=== PATIENT | female | born 1935 | race Caucasian/White ===

== ENCOUNTER 2017-07-31 21:57 | Observation (INO) | payer MEDICARE, OTHER ==
[2017-07-31 22:38] LABS: #Basophils 0.1 thou/uL (0.0-0.2); #Eosinphils 0.2 thou/uL (0.0-0.7); #Monocytes 0.6 thou/uL (0.11-0.59); #Neutrophils 5.1 thou/uL (1.40-6.50); %Basophils 0.7 % (0.0-1.0); %Eosinophils 2.5 % (0.0-10.0); %Lymphocytes 25.5 % (21.0-51.0); %Monocytes 7.4 % (0.0-10.0); Hematocrit 35.4 % (36.0-47.0); Mean Platelet Volume 7.3 fL (7.4-10.4); White Blood Cell (WBC) Count 7.9 thou/uL (4.8-10.8)
--- NOTE | 2017-07-31 22:44 | RAD ---
PORTABLE AP CHEST: Date: 07-31-17 History: altered mental status. Comparison: 07-31-17 from [facility] FINDINGS: There is increased density seen at the left lung base which could be related to left pleural effusio n and atelectasis. Superimposed pneumonia cannot be excluded. Right lung remains clear. Cardiac silh ouette and pulmonary vasculature are within normal limits. Vascular calcifications again seen in the thoracic aorta. There is bilateral glenohumeral osteoarthropathy again present. IMPRESSION: Increased density lateral left lung base which may be related to small left pleural effusion and ate lectasis. However, infiltrate cannot be entirely excluded. Follow up evaluation is recommended. POS: DANO
[2017-07-31 22:59] LABS: Anion Gap 16 mmol/L (10-20); BUN (Urea Nitrogen) 13 mg/dL (9.8-20.1); Calc. Creatinine Clearance 0 mL/min (70-130); Calcium 9.6 mg/dL (7.8-10.44); Carbon Dioxide 24 mmol/L (23-31); Chloride 101 mmol/L (98-107); Estimated GFR-MDRD 42
[2017-08-01] MEDS ORDERED: Ondansetron ODT 4 MG TAB SL PRN (01:39)
[2017-08-01] MEDS ORDERED: Ondansetron HCl/PF 4 MG/2 ML Vial IVP PRN ×2 (01:39→08:47)
[2017-08-01] MEDS ORDERED: Acetaminophen 325 MG TAB PO PRN (01:39)
[2017-08-01 02:31] VITALS: BMI 22.9
[2017-08-01] MEDS ORDERED: Phenylephrine 10 MG/NS 250 ML 250 ML ONE (07:07)
[2017-08-01] MEDS ORDERED: Albumin 5% 500 ML ONE (07:07)
[2017-08-01] MEDS: Aspirin 325 mg Enteric Coated Tablet PO SCH (09:19)
[2017-08-01] MEDS: Enoxaparin Sodium 40 MG/0.4 ML SYRINGE SC SCH (09:20)
[2017-08-01] MEDS: cefTRIAXone\\ROCEPHIN 1 GM in Sodium Chloride 0.9% 100 ML IVPB SCH (09:27)
[2017-08-01 11:34] LABS: Troponin I Less than 0.010 ng/mL (< 0.028)
--- NOTE | 2017-08-01 11:37 | HP ---
PRIMARY CARE PHYSICIAN: Vin Bradshaw M.D. CHIEF COMPLAINT: Altered mental status. HISTORY OF PRESENT ILLNESS: Ms. Cullen is a pleasant 82-year-old lady who was seen at [facility] on 08/01/2017 following transfer from [place]. The patient is able to provide some history. Further history was obtained from the medical record a s well as discussion with the emergency room physician. Over the last week, Ms. Cullen has had confusion and altered mental status. She went to the emerge ncy room at [place], because of the confusion. The emergency room physician discussed her case wi th her primary care physician. She was transferred to this facility for further management. She denies any weakness. She denies any dysuria or increased frequency of urination. She denies an y nausea, vomiting, diarrhea or abdominal pain. She denies any chest pain or shortness of breath. REVIEW OF SYSTEMS: The following complete review of systems was negative, unless otherwise mentione d in the HPI or below: Constitutional: Weight loss or gain, sense of well-being, ability to conduct usual activities, exer cise tolerance. Skin/Breast: Rash, itching, changes in hair growth or loss, nail changes, breast lumps, tenderness, swelling, nipple discharge. Eyes: Vision, double vision, tearing, blind spots, pain. ENT/Mouth: Headaches (location, time of onset, duration, precipitating factors), vertigo, lighthead edness, injury. Vision, double vision, tearing, blind spots, pain, nose bleeding, colds, obstruction , discharge, dental difficulties, gingival bleeding, dentures, neck stiffness, pain, tenderness, mas ses in thyroid or other areas. Cardiovascular: Precordial pain, substernal distress, palpitations, syncope, dyspnea on exertion, o rthopnea, nocturnal paroxysmal dyspnea, edema, cyanosis, hypertension, heart murmurs, varicosities, phlebitis, claudication. Respiratory: Pain, shortness of breath, wheezing, stridor, cough, hemoptysis, fever or night sweats . Gastrointestinal: Poor appetite, dysphagia, indigestion, abdominal pain, heartburn, eructation, ash sea, vomiting, hematemesis, jaundice, constipation, or diarrhea, abnormal stools (fabienne-colored, cynthia y, bloody, greasy, foul smelling), flatulence, hemorrhoids, recent changes in bowel habits. Genitourinary: Urgency, frequency, dysuria, nocturia, hematuria, polyuria, oliguria, unusual (or ch reji in) color of urine, stones, hesitancy, change in size of stream, dribbling, acute retention or incontinence, libido, potency. Musculoskeletal: Pain, swelling, redness or heat of muscles or joints, limitation, of motion, muscu lar weakness, atrophy, cramps. Neurologic/Psychiatric: Convulsions, paralyses, tremor, incoordination, paresthesias, difficulties with memory of speech, sensory or motor disturbances, or muscular coordination (ataxia, tremor), emo tional problems, anxiety, depression, previous psychiatric care, unusual perceptions, hallucinations . Allergy/Immunologic: Skin rash, anemia, bleeding tendency, polydipsia, polyuria, intolerance to hea t or cold. PAST MEDICAL HISTORY: Significant for hypertension and dyslipidemia. PAST SURGICAL HISTORY: Significant for knee surgery, back surgery, partial hysterectomy, and append ectomy. PSYCHIATRIC HISTORY: Significant for depression. SOCIAL HISTORY: The patient denies tobacco use, alcohol use or recreational drug use. FAMILY HISTORY: Significant for TIA in her mother. CODE STATUS: Could not be discussed, because of patient's altered mental status, will need to be cl arified. ALLERGIES: HYCOMINE and PENICILLIN. CURRENT MEDICATIONS: Include rivaroxaban 10 mg daily. Further medications need to be clarified. PHYSICAL EXAMINATION: GENERAL: Ms. Cullen is awake and alert, not in acute distress. VITAL SIGNS: Blood pressure is 131/60, pulse is 77. She is breathing at rate of 20 and saturating 96% on 2 liters of oxygen. She is afebrile. EYES: No scleral icterus. No conjunctival pallor. ENT: Moist mucosal membranes, no oropharyngeal erythema or exudates. NECK: Supple, nontender, normal range of movement. Trachea is midline. RESPIRATORY: Accessory muscles of breathing are not active. Chest wall movements are symmetric tio aterally. LUNGS: Clear to auscultation without wheeze, rhonchi or crepitations. CARDIOVASCULAR: S1 and S2 are heard, regular. Peripheral pulses palpable. No carotid bruit, no pe ricardial rub. ABDOMEN: Soft, nontender, bowel sounds heard, no hepatomegaly, splenomegaly. NEUROLOGIC: Cranial nerves II through XII intact. No focal motor or sensory deficits. Power is 5/ 5 in all 4 extremities. Cerebellar exam unremarkable. Deep tendon reflexes are 2+. Plantar reflex es downgoing bilaterally. MUSCULOSKELETAL: Power is 5/5 in all 4 extremities. Normal range of movement at all major extremit y joints. PSYCHIATRIC: Normal mood, normal affect, patient is oriented to person, now she is in a hospital, b ut does not know which one, is not oriented to date, month or year. SKIN: No rashes or subcutaneous nodules. LYMPHATIC: No cervical lymphadenopathy. LABORATORY DATA: Ms. Cullen's labs and investigations were reviewed. Urinalysis is positive for t race leukocyte esterase, negative for nitrites. I reviewed her electrocardiogram, which shows chin l sinus rhythm, T-wave inversion/flattening in anterolateral leads. I do not have an old electrocar diogram for comparison. I also reviewed her chest x-ray, which does not show any pulmonary infiltra jose. She also had a CT scan of the brain without contrast, which did not reveal any infarct or blee d. Laboratory investigation show normal electrolytes, creatinine mildly elevated at 1.3, estimated GFR 38, unremarkable liver profile, normal troponin I, white count 7900, hemoglobin 12.5, and platel et count 186,000. Calcium level is normal as well. ASSESSMENT AND PLAN: Ms. Cullen is a pleasant 82-year-old lady who was seen at [facility]. Her problem list includes: 1. Encephalopathy: Ms. Cullen is being admitted to the hospital for altered mental status of unkn own etiology. She will have further workup, including MRI of the brain to rule out stroke, 2D echoc ardiogram and carotid Dopplers. Neurology service will be consulted. She will be started on aspiri n and statin for suspected transient ischemic attack/cerebrovascular accident. Other etiologies of encephalopathy will be investigated, including rechecking her cardiac enzymes to rule out acute missael nary syndrome and starting her on antibiotics for suspected urinary tract infection. 2. Urinary tract infection: Suspected. The patient has already received a dose of ceftriaxone, we will continue. 3. EKG changes: Patient denies any chest pain. I will recheck cardiac enzymes and EKG. 4. Hypertension: Monitor vital signs, titrate antihypertensives as needed. 5. Dyslipidemia: Continue statins. It is unclear why Ms. Cullen is on rivaroxaban. We will need to obtain more information. LEVEL OF RISK: High. LEVEL OF COMPLEXITY: High. Many thanks for allowing me to participate in your patient's care. Please feel free to contact me w ith any questions or concerns.
--- NOTE | 2017-08-01 13:43 | MRI ---
MRI OF THE BRAIN WITHOUT CONTRAST: Comparison: None. History: Confusion and stroke. Technique: Multiplanar, multisequence MRI images were obtained of the brain without contrast. FINDINGS: There is scattered foci of high T2/FLAIR signal in the subcortical and periventricular white matter, likely secondary to small vessel ischemic disease. There is a small area of T2 shine through in the left frontal white matter. No obvious restricted diffusion is seen to suggest an acute infarction. There is cerebral atrophy. This causes ex vacuo dilatation of the lateral ventricles. There is no ev idence of hydrocephalus, intracranial hemorrhage, or extraaxial fluid collection. The expected flow voids are present. The corpus callosum, pituitary, and craniocervical junction are unremarkable. There is opacification of right mastoid air cells. The left mastoid air cells and paranasal sinuses are well aerated. IMPRESSION: Small vessel ischemic disease without acute intracranial abnormality. POS: DANOH
--- NOTE | 2017-08-01 16:32 | ULT ---
CAROTID DUPLEX SONOGRAM: History: TIA. Vascular disease. FINDINGS: Right: Moderate degree of plaque is present. Color and spectral doppler evaluation, peak systolic velocity of 67 cm/sec, and IC to CC ratio of 0.9 suggests no hemodynamically significant stenosis within the extracranial right ICA. Antegrade flow is present within the vertebral artery. Left: Minimal plaque is present. Color and spectral doppler evaluation, peak systolic velocity of 78 cm/se c, and IC to CC ratio of 1.0 suggests no hemodynamically significant stenosis within the extracrania l left ICA. Antegrade flow is present within the vertebral artery. IMPRESSION: Atherosclerosis. There is no sonographic evidence of a significant extracranial ICA stenosis. POS: [facility]
[2017-08-01 17:30] LABS: Troponin I Less than 0.010 ng/mL (< 0.028)
[2017-08-01] MEDS ORDERED: Atorvastatin Calcium 10 MG TAB PO SCH (21:00)
--- NOTE | 2017-08-01 23:54 | CON ---
DATE OF CONSULTATION: 08/01/2017 CONSULTING PHYSICIAN: Hospitalist Service. IMPRESSION: Early dementia. PLAN: 1. Aricept 5 mg per day. 2. Office followup. Ms. Cullen is an 82-year-old white female, lives in the [place] area with her nephew. She appare ntly seemed more confused and was brought in for evaluation. She apparently has been living with so me assistance for several years. She has never been or has any children. She had an MRI of the brain after admission, which only showed some small vessel ischemic changes. Her carotid ultra sound did not show any stenosis. Her echocardiogram showed an ejection fraction of 55%. Her vital signs have been stable and afebrile since admission. Her lab work including CBC and metabolic panel were both unremarkable. The patient is without any particular complaints. ALLERGIES: PENICILLIN, HYCOMINE. SOCIAL HISTORY: No tobacco or alcohol use. FAMILY HISTORY: Noncontributory. REVIEW OF SYSTEMS: No complaints of chest pain or shortness of breath. PHYSICAL EXAMINATION: GENERAL: She is a well-nourished elderly lady lying in bed, in no distress. HEENT: All within normal limits. EXTREMITIES: No cyanosis or edema noted. NEUROLOGIC: She was alert and cooperative. Her speech is fluent and clear. She was oriented to rson, but did not know the date or location. Once reoriented, she had trouble with short term recal l of the information. Cranial nerves II through XII are intact. Motor exam showed no focal weaknes s. Sensation was intact. No tremors or other abnormal movements were present. Gait was not tested . LABORATORY STUDIES: EKG showed normal sinus rhythm. SUMMARY: This is an elderly lady who is lucid, but has a poor sharp term recall. She apparently wa s a bit more confused, which might have been provoked by a number of different factors, but it does not appear to be any acute abnormalities at this point to address. I would be happy to follow up wi th her as an outpatient.
[2017-08-02 05:27] LABS: #Eosinphils 0.4 thou/uL (0.0-0.7); #Monocytes 0.4 thou/uL (0.11-0.59); #Neutrophils 3.7 thou/uL (1.40-6.50); %Basophils 0.2 % (0.0-1.0); %Eosinophils 5.6 % (0.0-10.0); %Lymphocytes 30.9 % (21.0-51.0); %Monocytes 6.7 % (0.0-10.0); Hematocrit 36.9 % (36.0-47.0); Mean Platelet Volume 7.5 fL (7.4-10.4); Red Blood Cell (RBC) Count 3.96 mill/uL (4.20-5.40); White Blood Cell (WBC) Count 6.6 thou/uL (4.8-10.8)
[2017-08-02 05:46] LABS: Anion Gap 12 mmol/L (10-20); BUN (Urea Nitrogen) 13 mg/dL (9.8-20.1); Calc. Creatinine Clearance 50 mL/min (70-130); Calcium 9.8 mg/dL (7.8-10.44); Carbon Dioxide 27 mmol/L (23-31); Chloride 101 mmol/L (98-107); Cholesterol 193 mg/dl (< 200 Desired); Estimated GFR-MDRD 65; LDL Cholesterol, Calculated 130 mg/dL
[2017-08-02] MEDS: Enoxaparin Sodium 40 MG/0.4 ML SYRINGE SC SCH (08:34)
[2017-08-02] MEDS: cefTRIAXone\\ROCEPHIN 1 GM in Sodium Chloride 0.9% 100 ML IVPB SCH (08:36)
[2017-08-02] MEDS: Aspirin 325 mg Enteric Coated Tablet PO SCH (08:36)
[2017-08-02] MEDS: Acetaminophen 325 MG TAB PO PRN ×2 (12:17→20:46)
--- NOTE | 2017-08-02 13:24 | PDOC.PN ---
- Subjective Encounter Start Date: 08/02/17 Encounter Start Time: 07:20 Pt seen for followup re: UTI. More alert, more lucid, answering questions appropriately. Denies chest pain, shortness of breath, fevers or chills. - Objective MAR Reviewed: Yes Vital Signs & Weight: Vital Signs (12 hours) Temp Pulse Pulse Pulse Resp BP BP 08/02/17 12:18 72 08/02/17 12:00 97.6 F 76 16 08/02/17 08:41 80 73 165/98 H 187/100 H 08/02/17 08:36 98.1 F 72 16 08/02/17 08:00 98.1 F 72 16 08/02/17 04:00 98.1 F 65 12 BP Pulse Ox 08/02/17 12:18 08/02/17 12:00 184/98 H 95 08/02/17 08:41 08/02/17 08:36 08/02/17 08:00 195/97 H 91 L 08/02/17 04:00 176/91 H 96 Weight Weight 140 lb I&O: 08/01/17 08/02/17 08/03/17 06:59 06:59 06:59 Intake Total 110 310 Output Total 175 2300 Result Diagrams: 08/02/17 04:46 08/02/17 04:46 EKG Reviewed by me: Yes (Tele: NSR) Phys Exam - Physical Examination Constitutional: NAD HEENT: moist MMs Neck: supple Respiratory: no wheezing, no rales, no rhonchi, clear to auscultation bilateral Cardiovascular: RRR, no rub Gastrointestinal: soft, positive bowel sounds Musculoskeletal: pulses present Neurological: non-focal, normal sensation, moves all 4 limbs Psychiatric: normal affect Deviation from normal: Oriented to person, place, month, year, day but not date Skin: no rash Dx/Plan (1) UTI (urinary tract infection) Status: Acute (2) Encephalopathy Code(s): G93.40 - ENCEPHALOPATHY, UNSPECIFIED Status: Acute (3) Dementia Code(s): F03.90 - UNSPECIFIED DEMENTIA WITHOUT BEHAVIORAL DISTURBANCE Status: Chronic - Plan continue antibiotics * . Continue IV ceftriaxone, await urine culture results. Encephalopathy improving. Appreciate neurology consult, will start Aricept for dementia. Review of Systems - Review of Systems Constitutional: negative: Fever, Chills, Sweats, Weakness, Malaise Respiratory: negative: Cough, Dry, Shortness of Breath, Hemoptysis, SOB with Excertion, Pleuritic Pain, Sputum, Wheezing Cardiovascular: negative: Chest Pain, Palpitations, Orthopnea, Paroxysmal Noc. Dyspnea, Edema, Light Headedness Neurological: negative: Weakness, Numbness, Incoordination, Change in Speech, Confusion, Seizures - Medications/Allergies Allergies/Adverse Reactions: Allergies Allergy/AdvReac Type Severity Reaction Status Date / Time chlorpheniramine Allergy Verified 08/01/17 01:37 [From Hycomine Compound] hydrocodone Allergy Verified 08/01/17 01:37 [From Hycomine Compound] Penicillins Allergy Verified 08/01/17 01:37 phenylephrine Allergy Verified 08/01/17 01:37 [From Hycomine Compound] Medications: Current Medications Acetaminophen (Tylenol) 650 mg PO Q4H PRN PRN Reason: Headache/Fever or Pain Last Admin: 08/02/17 12:17 Dose: 650 mg Enoxaparin Sodium (Lovenox) 40 mg SC 09 [facility] Last Admin: 08/02/17 08:34 Dose: 40 mg Hydralazine HCl (Apresoline) 10 mg SLOW IVP Q4H PRN PRN Reason: BP > 220/110 Last Admin: 08/02/17 12:18 Dose: 10 mg Ceftriaxone Sodium 1 gm/ (Sodium Chloride) 100 mls @ 200 mls/hr IVPB 09 [facility] Last Admin: 08/02/17 08:36 Dose: 100 mls Ondansetron HCl (Zofran) 4 mg IVP Q6H PRN PRN Reason: Nausea/Vomiting Sodium Chloride (Flush - Normal Saline) 10 ml IVF Q12HR [facility] Last Admin: 08/02/17 08:38 Dose: 10 ml Sodium Chloride (Flush - Normal Saline) 10 ml IVF PRN PRN PRN Reason: Saline Flush
[2017-08-02] MEDS ORDERED: Clopidogrel Bisulfate 75 MG TAB ONE (19:30)
[2017-08-02] MEDS ORDERED: Donepezil HCl 5 MG TAB PO SCH (21:00)
[2017-08-03 05:15] LABS: Anion Gap 18 mmol/L (10-20); BUN (Urea Nitrogen) 13 mg/dL (9.8-20.1); Calc. Creatinine Clearance 47 mL/min (70-130); Calcium 10.2 mg/dL (7.8-10.44); Carbon Dioxide 21 mmol/L (23-31); Chloride 98 mmol/L (98-107); Estimated GFR-MDRD 68
[2017-08-03 06:05] LABS: #Lymphocytes 1.1 thou/uL (1.20-3.40); #Monocytes 0.5 thou/uL (0.11-0.59); #Neutrophils 6.7 thou/uL (1.40-6.50); %Basophils 0.1 % (0.0-1.0); %Eosinophils 0.5 % (0.0-10.0); %Lymphocytes 13.4 % (21.0-51.0); %Monocytes 5.4 % (0.0-10.0); Hematocrit 40.5 % (36.0-47.0); Mean Platelet Volume 7.4 fL (7.4-10.4); Red Blood Cell (RBC) Count 4.32 mill/uL (4.20-5.40); White Blood Cell (WBC) Count 8.3 thou/uL (4.8-10.8)
[2017-08-03 07:48] VITALS: BP 174/96; TEMP 97.7
[2017-08-03] MEDS ORDERED: Nitrofurantoin Monohyd/M-Cryst 100 MG CAP PO SCH (09:00)
--- NOTE | 2017-08-03 09:05 | EKG ---
Test Reason : Blood Pressure : / mmHG Vent. Rate : 061 BPM Atrial Rate : 061 BPM P-R Int : 162 ms QRS Dur : 082 ms QT Int : 434 ms P-R-T Axes : 045 -08 062 degrees QTc Int : 436 ms Normal sinus rhythm Normal ECG When compared with ECG of 31-JUL-2017 22:29, (Unconfirmed) No significant change was found Confirmed by CODEY TAM ([id number]) on 08/03/2017 9:04:45 AM Referred By: ARAVIND Confirmed By:CODEY TAM
[2017-08-03] MEDS: Enoxaparin Sodium 40 MG/0.4 ML SYRINGE SC SCH (09:18)
--- NOTE | 2017-08-03 10:21 | DIS ---
DATE OF ADMISSION: 07/31/2017 DATE OF DISCHARGE: 08/03/2017 PRIMARY CARE PHYSICIAN: Vin Bradshaw M.D. DISCHARGE DIAGNOSES: 1. Encephalopathy, resolved. 2. Escherichia coli urinary tract infection. 3. Early dementia. CONDITION OF PATIENT AT THE TIME OF DISCHARGE: Stable. I assess Ms. Cullen on the day of discharg e. She denies any chest pain or shortness of breath. Vital signs are stable. S1 and S2 are heard, regular. Lungs are clear to auscultation bilaterally. She is oriented x3. DISCHARGE MEDICATIONS: Aricept 5 mg at bedtime, nitrofurantoin 100 mg 2 times a day, 13 more doses. HOSPITAL COURSE: Ms. Cullen is a pleasant 82-year-old lady who was admitted to [facility] for encephalopathy, most likely secondary to infection. She had MRI of the brain on 08/01/2017, which showed small vessel ischemic disease without any acute intracranial abnormality. A 2D echocardiogram showed left ventricular ejection fraction estimated at 55%-60%, findings suggest aris of diastolic dysfunction, mild mitral regurgitation and mild tricuspid regurgitation. Carotid D opplers on 08/01/2017 did not show any sonographic evidence of significant extracranial ICA stenosis . She had atherosclerosis. She was seen by Neurology Service, was diagnosed with early dementia. She has been started on Aricept, and will be followed by the neurologist, Dr. Regalado. She also had urine cultures, which grew Escherichia coli that was resistant to trimethoprim/sulfamet hoxazole, gentamicin and ampicillin, intermediate sensitivity to ampicillin/sulbactam and sensitive to amikacin, cefepime, cefoxitin, ceftazidime, ceftriaxone, ciprofloxacin, levofloxacin, meropenem, nitrofurantoin, piperacillin and tazobactam, and tobramycin. She received intravenous ceftriaxone f rom the day of admission. On the day of discharge, she is being transitioned to Macrobid. This is because she had a prolonged corrected QT interval. Many thanks for allowing me to participate in your patient's care. Please feel free to contact me w ith any questions or concerns. On the day of discharge, Ms. Cullen has a white count of 8300, hemoglobin 13.2, platelet count 185, 000. Sodium 133, potassium 3.7, creatinine 0.81. During this hospitalization, she had triglyceride s 100, cholesterol 193, LDL cholesterol 130, and HDL cholesterol 43. On 07/31/2017, she had a creat inine of 1.23. DISCHARGE DESTINATION: Home.
[2017-08-03] MEDS ORDERED: Ondansetron ODT 4 MG TAB PO SCH (13:15)
[2017-08-03] MEDS ORDERED: Ondansetron ODT 4 MG TAB PO PRN (18:00)
--- NOTE | 2017-08-04 14:59 | EKG ---
Test Reason : Blood Pressure : / mmHG Vent. Rate : 070 BPM Atrial Rate : 070 BPM P-R Int : 160 ms QRS Dur : 082 ms QT Int : 422 ms P-R-T Axes : 054 -13 073 degrees QTc Int : 455 ms Normal sinus rhythm Normal ECG Confirmed by KIT ROLLINS D.O. ([id number]), news editor ARCELIA LIN ([id number]) on 08/04/2017 2:59:06 PM Referred By: Confirmed By:KIT ROLLINS D.O.
== END 2017-08-03 13:17 | disposition home health service (06) ==
LOC: ERS 21:57 → 2SE 22:50
PROVIDERS: ADMIT Internal Medicine; ATTEND Internal Medicine
DX: G93.40 Encephalopathy, unspecified (principal); F32.9 Major depressive disorder, single episode, unspecified; I10 Essential (primary) hypertension; E78.5 Hyperlipidemia, unspecified; F03.90 Unspecified dementia, unspecified severity, without behavioral disturbance, psychotic disturbance, mood disturbance, and anxiety; N39.0 Urinary tract infection, site not specified; B96.20 Unspecified Escherichia coli [E. coli] as the cause of diseases classified elsewhere; Z16.11 Resistance to penicillins; Z88.0 Allergy status to penicillin; Z88.5 Allergy status to narcotic agent
CPT/HCPCS: 70551; 71010; 80048 ×3; 80061; 82553 ×2; 82962; 84484 ×2; 85025 ×3; 93005 ×2; 93306; 93880; 96372 ×3; 96374; 96375 ×2; 96376; 97110 ×2; 97116 ×2; 97139 ×3; 97530; 99285; G0378 ×2; G8978; G8979; G8987; G8988; P9045; 36415; 36416; 93010; A4216; G8996-GN-CI; G8997-GN-CI; J0360; J0696; J1650; J2405; J7050